=== PATIENT | female | born 1940 | race Caucasian/White ===

== ENCOUNTER 2022-02-01 09:28 | Emergency (ER) | payer OTHER, SELFPAY ==
--- NOTE | ~2022-02-01 | CT_ITS ---
EXAMINATION: CT MASTOID. CLINICAL INFORMATION: Left-sided ear pain and tenderness along the mastoid tip. COMPARISON: None TECHNIQUE: Axial 0.6 mm thin and reformatted 0.6 minutes and coronal and sagittal images of mastoid sinuses were obtained. DLP 200.63. FINDINGS: Right: There is a complete opacification of right mastoid sinus with soft tissue density in the right epitympanum consistent with cholesteatoma and chronic mastoiditis. The middle ear ossicles, tympanic membrane and scutum is visualized and appears intact. The internal auditory canal, the semicircular canals and the vestibule and appears normal. The petrous bone appears unremarkable. Left ureter: The left mastoid sinus is well-aerated and the bone cortex is intact. There is no soft tissue mass or fluid collection in the left middle ear. The middle ear ossicles and scutum is normal. The external auditory canal is well-aerated and clear. The internal auditory canal, cochlea and semicircular canals are normal. Visualized paranasal sinuses are well-aerated and clear. The bony orbits, optic globe and optic nerves are normal. The soft tissues around the external auditory canal bilaterally are normal. No abnormal lymph nodes seen.. CT/CT mastoid IMPRESSION: No abnormality seen in the left petrous bone, mastoid sinus or left ear.. 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 The middle ear ossicles ,scutum and the tympanic membrane appears intact.
--- NOTE | 2022-02-01 10:00 | PC.NURSE ---
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
[2022-02-01 10:12] VITALS: BP 139/82; PULSE 81; RESP 18; TEMP 36.6; O2SAT 98; BMI 28.3
--- NOTE | 2022-02-01 11:41 | ED.EAR ---
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 Mode of arrival: ambulatory Limitations: no limitations History of Present Illness MD Complaint: ear pain Location: left ear Duration: constant (1 week) Severity: moderate Relieving factors: nothing Exacerbating factors: chewing and palpation Context: other (denies any known event) Discharge from ear: no Associated symptoms ear: external ear tenderness Treatment prior to arrival: none Related Data Previous Rx's Medication Instructions Recorded amoxicillin 500 mg tablet 500 mg PO TID 7 Days #21 tab 02/01/22 hydrocodone 5 mg-acetaminophen 325 1 tab PO Q6H PRN #12 tab 02/01/22 mg tablet prednisone 20 mg tablet 40 mg PO DAILY 5 Days #10 tab 02/01/22 Allergies Allergy/AdvReac Type Severity Reaction Status Date / Time No Known Allergies Allergy Verified 02/01/22 10:11 [No Known Allergies*] Review of Systems Review of Systems: Constitutional : No Fever, No Chills, No Fatigue ENT/Mouth : No sore throat, No Rhinorrhea, pos ear pain, no change in hearing Eyes: No Eye Pain, No Swelling, No Redness Cardiovascular : No Chest Pain, No SOB Respiratory : No Cough, No Sputum, No Wheezing Gastrointestinal : No Nausea, No Vomiting, No Diarrhea Genitourinary : No Dysuria, No Urinary Frequency, No Hematuria, Musculoskeletal : No joint pain, No Myalgias, No Joint Swelling Skin : No Skin Lesions, No rash Neuro : No Weakness, No Numbness, No Dizziness, No Headache All other systems reviewed and are negative [facility] [place] Past Medical History Attestation statement: The following information was validated with the patient. Medical History Asthma Diabetes Hypertension Hypothyroid Social History Social History (Updated 02/01/22 @ 11:44 by Gabbie Staples DO) Patient Tobacco Use Status: Never used Tobacco Advance Directives: No Advance Directives Information Provided: No Physical Exam Vital Signs: Vital Signs: Last Vital Signs Temp 97.8 F 02/01/22 10:12 Pulse 74 02/01/22 14:04 Resp 16 02/01/22 14:04 BP 170/75 H 02/01/22 14:04 Pulse Ox 97 02/01/22 14:04 BMI result Body Mass Index 28.3 Appearance: Alert. Oriented X3. No acute distress. Eyes: Pupils equal, round and reactive to light. ENT: Pharynx normal. L max sinus ttp. L TM effusion - yellow noted, not bulging but loss of landsmarks and retracted, no temporal artery ttp or irritations noted, normal oropharynx, external ear is normal no erythema, reports ttp along L mastoid it externally has no redness or swelling. Neck: Normal inspection. Neck supple. CVS: Normal heart rate and rhythm. Pulses normal. Respiratory: No respiratory distress. Breath sounds normal. Abdomen: Soft and nontender. Skin: Skin warm and dry. Normal skin color. Normal skin turgor. Extremities: No lower extremity edema. No calf ttp Neuro: Oriented X 3. No motor deficit. No sensory deficit. Course Course Course Narrative: has no issues on the R side - chronic otomastoiditis does not match up clinically - patient notified of chronic R sided infection ESR elevated has no tender temporal arteritis - will start on prednisone, amoxicillin no vision changes MDM - Ear MDM Narrative Medical decision making narrative: 81 yo female with hx of asthma, HTN, DM, hypothyroid - here with 1 week of L ear pain she reports her ear is painful to touch externally it looks normal with no signs of infection. She does not have tender temporal artery - but given age will obtain ESR. CT mastoids given reported ttp over mastoid. Dispo per results and findings. Hearing intact per patient. Lab Data Labs: Lab Results 02/01/22 Range/Units 11:44 ESR 74 H (0-20) MM/HR Discharge Plan Discharge Clinical Impression: Elevated erythrocyte sedimentation rate Acute ear pain Qualifiers: Laterality: left Qualified Code(s): H92.02 - Otalgia, left ear Sinusitis Qualifiers: Sinusitis location: maxillary Chronicity: acute Recurrence: non-recurrent Qualified Code(s): J01.00 - Acute maxillary sinusitis, unspecified Patient Disposition: Home, Self-Care Instructions: Sinusitis (ED), Earache (ED) Additional Instructions: return to ED for any worsening symptoms or concerns Prescriptions: New amoxicillin 500 mg tablet 500 mg PO TID 7 Days Qty: 21 0RF hydrocodone-acetaminophen 5-325 mg tablet 1 tab PO Q6H PRN (Reason: pain) Qty: 12 0RF prednisone 20 mg tablet 40 mg PO DAILY 5 Days Qty: 10 0RF Referrals: Chidi Levine MD [Primary Care Provider] - 1 day Joe Hilton MD [Physician] - 2 days Interventions: ED Discharge Assessment Last Done: 02/01/22 14:40 Discharge Date/Time: 02/01/22 14:40 Print Language: Marshallese
[2022-02-01] MEDS: HYDROcodone Bit/Acetam 5/325 TABLET 1 TAB PO (11:52)
[2022-02-01] MEDS: Ondansetron ODT 4 MG TAB.RAPDIS TRANSLINGU (11:52)
[2022-02-01 12:26] LABS: Erythrocyte Sedimentation Rate 74 MM/HR (0-20)
[2022-02-01 14:04] VITALS: BP 170/75; PULSE 74; RESP 16; O2SAT 97
[2022-02-01] MEDS: oxyCODONE HCl Immed Release 5 MG TABLET PO (14:08)
== END 2022-02-01 14:40 | disposition home or self-care (01) ==
PROVIDERS: Emergency Provider Emergency Medicine; PCP Internal Medicine
DX: H92.02 Otalgia, left ear (principal); J01.00 Acute maxillary sinusitis, unspecified; M54.2 Cervicalgia; I10 Essential (primary) hypertension; E11.9 Type 2 diabetes mellitus without complications; Z79.899 Other long term (current) drug therapy
CPT/HCPCS: 36415; 70481; 85652; 99284

== ENCOUNTER 2022-08-22 11:07 | Emergency (ER) | payer OTHER, MEDICARE, SELFPAY ==
--- NOTE | ~2022-08-22 | US_ITS ---
EXAMINATION: US VENOUS ULTRASOUND WITH DOPPLER LOWER EXTREMITY, BILATERAL CLINICAL INFORMATION: Swelling, edema COMPARISON: None TECHNIQUE: Ultrasound of the deep veins is performed from the hip to the calf with compression sonography and color and pulse Doppler assessment. Spectral analysis with color-flow imaging is performed. FINDINGS: RIGHT: There is normal venous compression and respiratory variation and augmented flow. The visualized common femoral vein, superficial femoral vein, profunda femoral vein, popliteal vein, and the trifurcation region shows no evidence of deep venous thrombosis. There is no significant popliteal fossa cyst. LEFT: There is normal venous compression and respiratory variation and augmented flow. The visualized common femoral vein, superficial femoral vein, profunda femoral vein, popliteal vein, and the trifurcation region shows no evidence of deep venous thrombosis. There is no significant popliteal fossa cyst. If the patient's symptoms persist, followup ultrasound in 5 days 7 days might be of value to exclude proximal propagation from a non-visualized calf vein. US/US venous duplex LE BI IMPRESSION: No DVT demonstrated in the bilateral lower extremity.
--- NOTE | 2022-08-22 11:28 | PC.NURSE ---
CALLED FOR RESEARCH EDITOR
[2022-08-22 11:34] VITALS: BP 217/87; PULSE 91; RESP 18; TEMP 36.7; O2SAT 97; BMI 29.2
--- NOTE | 2022-08-22 11:40 | ECG_ITS ---
Test Reason : LE EDEMA Blood Pressure : / mmHG Vent. Rate : 081 BPM Atrial Rate : 081 BPM P-R Int : 136 ms QRS Dur : 128 ms QT Int : 432 ms P-R-T Axes : 018 -15 108 degrees QTc Int : 501 ms Normal sinus rhythm Left bundle branch block Abnormal ECG When compared with ECG of 10-AUG-2019 12:53, ST more depressed Lateral leads Referred By: Generic ED Physician Electronically Signed By:ERICA LOVE MD
[2022-08-22 12:34] LABS: Basophils Percent Auto 0.4 % (0-2); Eosinophils Absolute Auto 0.4 X10*3/uL (0.0-0.4); Eosinophils Percent Auto 4.6 % (0-4); Hematocrit 35.9 % (37.0-47.0); Hemoglobin 11.4 g/dl (12.0-16.0); Imm Gran Abs Auto 0.03 X10*3/uL (0.00-0.03); Imm Gran Pct Auto 0.4 % (0.0-0.4); Lymphocytes Percent Auto 25.2 % (20-40); MANUAL DIFF FLAG NO; Mean Corpuscular HGB Conc 31.8 g/dl (31.0-35.0); Mean Corpuscular Hemoglobin 27.8 pg (27.0-33.0); Mean Corpuscular Volume 87.6 fL (80.0-98.0); Mean Platelet Volume 10.6 fL (9.4-12.3); Monocytes Absolute Auto 0.6 X10*3/uL (0.1-1.2); Monocytes Percent Auto 8.1 % (2-11); Neutrophils Absolute Auto 4.8 x10*3/uL (2.0-8.3); Neutrophils Percent Auto 61.3 % (45-73); Platelet Count 249 X10*3/uL (160-400); Red Cell Distribution Width 15.9 % (11.0-16.0); White Blood Count 7.8 X10*3/uL (4.8-10.8)
[2022-08-22 12:58] LABS: Anion Gap 17 (12-20); Blood Urea Nitrogen 16 mg/dL (9-16); Calcium 9.9 mg/dL (8.4-10.2); Carbon Dioxide 22 mmol/L (22-29); Chloride 109 mmol/L (96-108); Creatinine Clr Calc Pharmacy 44.9; Estimated Glomerular Filt Rate > 60; Glucose Random 107 mg/dL (60-115); Potassium 3.4 mmol/L (3.3-5.1); Sodium 145 mmol/L (135-145)
[2022-08-22 13:04] LABS: Troponin-I High Sensitivity 6.7 ng/L (<3.5-17.0)
[2022-08-22 14:28] VITALS: BP 224/77; PULSE 81; RESP 18; O2SAT 97
--- NOTE | 2022-08-22 14:39 | ED_ITS ---
HPI - General Adult General Chief complaint: General Medical Stated complaint: Pain in feet Time Seen by Provider: 08/22/22 14:30 Source: patient Mode of arrival: ambulatory Limitations: no limitations History of Present Illness HPI narrative: THIS IS 82 YEARS OLD FEMALE PRESENTED TO THE ED WITH A CHIEF COMPLAINT OF PAIN IN THE ANKLE RIGHT MORE THAN LEFT. DENIES ANY TRAUMA. DENIES ANY FEVER CHILLS VOMITING CHILLS VOMITING. PATIENT BLOOD PRESSURE NOTED IN TRIAGE ABOUT SHE DID NOT TAKE HER BLOOD PRESSURE MEDICATION THIS MORNING. SHE HAS NO CHEST PAIN NOR SHORTNESS OF BREATH Onset (ago): day(s) (1) Location: lower extremity Radiation: non-radiation Severity scale (1-10): 1 Pain Consistency: constant Treatments prior to arrival: none Related Data Home Medications Medication Instructions Recorded Confirmed famotidine 40 mg tablet 40 mg PO DAILY 03/03/22 03/03/22 glimepiride 2 mg tablet 2 mg PO BID 03/03/22 03/03/22 levothyroxine 25 mcg tablet 25 mcg PO DAILY 03/03/22 03/03/22 (Synthroid) losartan 100 mg tablet 100 mg PO DAILY 03/03/22 03/03/22 metformin 1,000 mg tablet 1,000 mg PO BID 03/03/22 03/03/22 montelukast 10 mg tablet 10 mg PO BEDTIME 03/03/22 03/03/22 Previous Rx's Medication Instructions Recorded blood pressure monitor #1 ea 03/03/22 Allergies Allergy/AdvReac Type Severity Reaction Status Date / Time No Known Allergies Allergy Verified 08/22/22 11:34 [No Known Allergies*] Review of Systems Constitutional: Constitutional: Reports no additional constitutional complaints ENT: Reports system reviewed and no additional complaints, except as documented Cardiovascular: Cardiovascular: Reports no additional cardiovascular complaints Genitourinary: Genitourinary: Reports no additional female genitourinary complaints Neurologic: Reports system reviewed and no additional complaints, except as documented [facility] Past Medical History Medical History Asthma Diabetes Hypertension Hypothyroid Surgical History No pertinent past surgical history Family History Family History Mother Hypertension Hypercholesterolemia Father No problems noted. Social History Social History Alcohol intake: former Patient Tobacco Use Status: Never used Tobacco Advance Directives: No Advance Directives Information Provided: No Physical Exam ED Vital Signs: Vital Signs - 24 hr 08/22/22 11:34 08/22/22 14:28 08/22/22 14:46 Temperature 98.1 F 97.7 F Pulse Rate 91 81 81 Respiratory Rate 18 18 16 Blood Pressure 217/87 H 224/77 H 222/87 H Pulse Oximetry 97 97 95 Oxygen Delivery Method Room Air Room Air Room Air 08/22/22 16:33 08/22/22 17:00 Temperature Pulse Rate 76 76 Respiratory Rate 18 Blood Pressure 188/77 H 185/70 H Pulse Oximetry 96 Oxygen Delivery Method Room Air BMI result Body Mass Index 29.2 Const General: cooperative Orientation/consciousness: oriented to person, oriented to place and oriented to time HENMT Head: Yes normal to inspection Ears: hearing grossly normal bilaterally General nose exam: Normal external nose present Face and sinus: Yes normal facial exam Mouth: Normal oral and palatal mucosa present Throat: Yes posterior oropharynx normal Neck Neck: Yes normal visual inspection Chest Chest palpation & inspection: normal inspection of the chest Resp Effort & Inspection: normal respiratory effort and able to speak in complete s entences Auscultation: clear to auscultation bilaterally Cardio Jugular venous distension: no JVD Rate: regular rate Rhythm: regular rhythm GI Inspection: Yes normal to inspection Palpation (GI): Soft to palpation, not firm, nontender and no guarding Percussion: Yes normal to percussion Skin General skin exam: no rashes or lesions noted, elasticity normal and turgor normal Lesions: no lesions Neuro General: oriented to person, oriented to place and oriented to time Cranial nerves: Yes CN's II-XII intact bilaterally Extrem Other: EXAMINATION THE LOWER EXTREMITY SHOWS A VERY GOOD PULSES IN THE FEET, SHE HAS GOOD CAPILLARY REFILL, TRACE OF EDEMA Course Reevaluation(s) Reevaluation #1: SHE IS FEELING BETTER NOW BLOOD PRESSURE NOTED BUT AGAIN THE PATIENT IS NO COMPLIANT WITH MEDICATION SHE NOT TAKE THE MEDICATION THIS MORNING. ULTRASOUND IS NEGATIVE PATIENT CAN BE DISCHARGED HOME Time: 16:31 Reevaluation #2: bp IMPROVING AGAIN SHE IS NOT COMPLAINT WITH MEDS Medical Decision Making Lab Data Result diagrams: 08/22/22 12:22 08/22/22 12:22 Labs: Lab Results 08/22/22 08/22/22 08/22/22 Range/Units 12:22 12:22 12:22 WBC 7.8 (4.8-10.8) X10*3/uL RBC 4.10 L (4.20-5.50) X10*6/uL Hgb 11.4 L (12.0-16.0) g/dl Hct 35.9 L (37.0-47.0) % MCV 87.6 (80.0-98.0) fL MCH 27.8 (27.0-33.0) pg MCHC 31.8 (31.0-35.0) g/dl RDW 15.9 (11.0-16.0) % Plt Count 249 (160-400) X10*3/uL MPV 10.6 (9.4-12.3) fL Immature Gran % (Auto) 0.4 (0.0-0.4) % Neut % (Auto) 61.3 (45-73) % Lymph % (Auto) 25.2 (20-40) % [place] % (Auto) 8.1 (2-11) % Eos % (Auto) 4.6 H (0-4) % Baso % (Auto) 0.4 (0-2) % Lymph # (Auto) 2.0 (1.2-4.9) X10*3/uL [place] # (Auto) 0.6 (0.1-1.2) X10*3/uL Eos # (Auto) 0.4 (0.0-0.4) X10*3/uL Baso # (Auto) 0.0 (0.0-0.2) X10*3/uL Abs Immat Gran (auto) 0.03 (0.00-0.03) X10*3/uL Absolute Neuts (auto) 4.8 (2.0-8.3) x10*3/uL Absolute Nucleated RBC 0.000 (0.0-0.012) X10*3/uL Nucleated RBC % (auto) 0.0 (0.0-0.2) /100WBC Sodium 145 (135-145) mmol/L Potassium 3.4 (3.3-5.1) mmol/L Chloride 109 H (96-108) mmol/L Carbon Dioxide 22 (22-29) mmol/L Anion Gap 17 (12-20) BUN 16 (9-16) mg/dL Creatinine 0.88 (0.5-1.4) mg/dL Estim Creat Clear Calc 44.9 Estimated GFR > 60 Random Glucose 107 (60-115) mg/dL Calcium 9.9 (8.4-10.2) mg/dL Troponin I High Sens 6.7 (<3.5-17.0) ng/L Imaging Data US LEG: Radiologist's impression: There is normal venous compression and respiratory variation and augmented flow. The visualized common femoral vein, superficial femoral vein, profunda femoral vein, popliteal vein, and the trifurcation region shows no evidence of deep venous thrombosis. ? There is no significant popliteal fossa cyst. LEFT: There is normal venous compression and respiratory variation and augmented flow. The visualized common femoral vein, superficial femoral vein, profunda femoral vein, popliteal vein, and the trifurcation region shows no evidence of deep venous thrombosis. ? There is no significant popliteal fossa cyst. If the patient's symptoms persist, followup ultrasound in 5 days 7 days might be of value to exclude proximal propagation from a non-visualized calf vein. US/US venous duplex LE BI IMPRESSION: No DVT demonstrated in the bilateral lower extremity. Dictated By: Juve Jiménez MD Signed By: <Electronically signed by Juve Jiménez MD in OV> 08/22/22 1620 Discharge Plan Discharge Clinical Impression: Acute leg pain Patient Disposition: Home, Self-Care Instructions: Leg Pain (ED) Additional Instructions: MAKE SURE YOU TAKE YOUR BLOOD PRESSURE PRESCRIBED ALSO IN TO GET A PRIMARY CARE PHYSICIAN,YOU CAN CALL [facility] Prescriptions: No Action metformin 1,000 mg tablet 1,000 mg PO BID famotidine 40 mg tablet 40 mg PO DAILY losartan 100 mg tablet 100 mg PO DAILY levothyroxine [Synthroid] 25 mcg tablet 25 mcg PO DAILY montelukast 10 mg tablet 10 mg PO BEDTIME glimepiride 2 mg tablet 2 mg PO BID (DME) blood pressure monitor Kit See Rx Instructions .Route Qty: 1 0RF Rx Instructions: As directed Referrals: [facility] [Provider Group] - 2 days Interventions: ED Discharge Assessment Last Done: 08/22/22 17:17 Discharge Date/Time: 08/22/22 17:18
[2022-08-22 14:46] VITALS: BP 222/87; PULSE 81; RESP 16; TEMP 36.5; O2SAT 95
[2022-08-22] MEDS: Losartan Potassium 50 MG TABLET 100 MG PO (15:01)
[2022-08-22] MEDS: Acetaminophen 325 MG TABLET 975 MG PO (15:01)
[2022-08-22] MEDS: hydroCHLOROthiazide 25 MG TABLET PO (15:02)
--- NOTE | 2022-08-22 15:04 | PC.NURSE ---
Addendum entered by Lise Babcock RN 08/22/22 15:09: daughter at bedside Original Note: pt resting comfortably. BP 222/87 gave her losartan and hydrochlorothiazide. pain on left ankle 2/10 gave her tylenol. other vs WNL
[2022-08-22 16:33] VITALS: BP 188/77; PULSE 76; RESP 18; O2SAT 96
[2022-08-22] MEDS: cloNIDine HCL 0.1 MG TABLET PO (16:43)
--- NOTE | 2022-08-22 16:46 | PC.NURSE ---
pt. resting comfortably. pain on rt ankle 11/26 stated Tylenol did help. BP 188/77. gave her clonidine per prov orders. other VS WNL. normal sinus on heart monitor
[2022-08-22 17:00] VITALS: BP 185/70; PULSE 76
== END 2022-08-22 17:18 | disposition home or self-care (01) ==
PROVIDERS: Emergency Provider Emergency Medicine
DX: M79.671 Pain in right foot (principal); R60.0 Localized edema; Z79.899 Other long term (current) drug therapy
CPT/HCPCS: 36415; 80048; 84484; 85025; 93005; 93970; 99284